=== PATIENT | male | born 2000 | race Two or more races ===

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

== ENCOUNTER 2024-08-10 06:58 | Emergency (ER) | payer MEDICAID, OTHER ==
[~2024-08-10] VITALS: Ht 167.6 cm; Wt 70.0 kg
--- NOTE | 2024-08-10 07:19 | ED.PDOC ---
History of Present Illness HPI Comments 24-year-old male BIBA no prior medical history but has a social history of alcohol use in a chief complaint of EtOH. EMS report that the patient went into the [employer] and was trying to buy alcohol while already intoxicated, the employees from [employer] declined patient to purchase more alcohol on and they found the patient passed out drunk in his vehicle. Patient had a blood sugar of 68 on scene. When the patient was in the ambulance [place], was trying and talk to the patient but the patient said Fuck off as well as go back to your [place] . Denies chills, fever, N/V/D, SOB, CP. No other associated symptoms, modifiers, recent injuries or sick contacts present at this time. Time Seen by MD: 07:10 Reviewed Notes: Nurses Notes, [employer] Boiler Notes, Medications, Allergies Allergies: Coded Allergies: Avocado (Verified Allergy, Severe, 07/22/20) Banana (Verified Allergy, Severe, 07/22/20) Information Source: Patient (Noncompliant), Emergency Med Personnel Mode of Arrival: EMS Severity: Moderate Timing: Hours Duration: Since onset, Hours Prehospital treatment: None Past Medical History PAST MEDICAL HISTORY: Denies Surgical History: Denies all surgeries Family History Family History: Reviewed,noncontributory to illness, Unknown Social History Smoker: Other (Due from the being noncompliant) Alcohol: Heavy Drugs: Unknown (Due from being noncompliant) Lives In: Unknown (Due from being noncompliant) Constitutional: reports: others (ETOH); denies: chills, diaphoresis, fatigue, fever, malaise, sweats, weakness EENTM: denies: blurred vision, double vision, ear bleeding, ear discharge, ear drainage, ear pain, ear ringing, eye pain, eye redness, hearing loss, mouth pain, mouth swelling, nasal discharge, nose bleeding, nose congestion, nose pain, photophobia, tearing, throat pain, throat swelling, voice changes, others Respiratory: denies: cough, hemoptysis, orthopnea, SOB at rest, shortness of breath, SOB with excertion, stridor, wheezing, others Cardiovascular: denies: chest pain, dizzy spells, diaphoresis, Dyspnea on exertion, edema, irregular heart beat, left arm pain, lightheadedness, palpitations, PND, syncope, others Gastrointestinal: denies: abdomen distended, abdominal pain, blood streaked bowels, constipated, diarrhea, dysphagia, difficulty swallowing, hematemesis, melena, nausea, poor appetite, poor fluid intake, rectal bleeding, rectal pain, vomiting, others Genitourinary: denies: burning, dysuria, flank pain, frequency, hematuria, incontinence, penile discharge, penile sore, pain, testicle pain, testicle swelling, urgency, others Neurological: denies: dizziness, fainting, headache, left sided numbness, left sided weakness, numbness, paresthesia, pre-existing deficit, right sided numbness, right sided weakness, seizure, speech problems, tingling, tremors, weakness, others Musculoskeletal: denies: back pain, gout, joint pain, joint swelling, muscle pain, muscle stiffness, neck pain, others Integumetry: denies: bruises, change in color, change in hair/nails, dryness, laceration, lesions, lumps, rash, wounds, others Allergic/Immunocompromised: denies: Difficulty Healing, Frequent Infections, Hives, Itching, others Hematologic/Lymphatic: denies: anemia, blood clots, easy bleeding, easy bruising, swollen glands, others Endocrine: denies: excessive hunger, excessive sweating, excessive thirst, excessive urination, flushing, intolerance to cold, intolerance to heat, unexplained weight gain, unexplained weight loss, others Psychiatric: denies: anxiety, bipolar disorder, depression, hopeless, panic dis order, schizophrenia, sleepless, suicidal, others All Other Systems: Reviewed and Negative Physical Exam General Appearance: No Apparent Distress, Normal HEENT: Normal ENT Inspection, Pharynx Normal, TMs Normal Neck: Full Range of Motion, Non-Tender, Normal, Normal Inspection Respiratory: Chest Non-Tender, Lungs Clear, No Accessory Muscle Use, No Respiratory Distress, Normal Breath Sounds, Other (Expansion of the lungs on observation no sign of any distress) Cardiovascular: No Edema, No JVD, No Murmur, No Gallop, Normal Peripheral Pulses, Regular Rate/Rhythm Breast Exam: Deferred Gastrointestinal: No Organomegaly, Non Tender, No Pulsatile Mass, Normal Bowel Sounds, Soft Genitalia: Deferred Pelvic: Deferred Rectal: Deferred Extremities: No calf tenderness, Normal capillary refill, Normal inspection, Normal range of motion, Non-tender, No pedal edema, Other (Moving all extremities without any difficulty) Musculoskeletal : Apperance: Normal Neurologic: Alert, metal melter II-XII nml as Tested, No Motor Deficits, Normal Affect, Normal Mood, No Sensory Deficits Cerebellar Function: NOT DONE Reflexes: NOT DONE Skin: Dry, Normal Color, Warm Peripheral Pulses: 3+ Radial (R), 3+ Radial (L) Lymphatic: No Adenopathy Was a procedure done? Was a procedure done?: No Differential Dx Considerations may include: Alcohol abuse X-Ray, Labs, Meds, VS Patient alert. Answering questions. No slurred speech. Moving all extremities. Vitals stable. No injuries. History of alcohol abuse. Very abusive. Unable to get a good physical examination. On observation no leg swelling. No shortness a breath. Explained to the patient that I will need to do further workup but he refused. He did sign against medical advice. Was told to come back if there is any problem. Time of 1ST Reevaluation: 07:40 Reevaluation 1ST: Improved Patient Education/Counseling: Diagnosis, Treatment, Prognosis Family Education/Counseling: No Family Present Departure 1 Departure Time of Disposition: 07:35 Impression: Primary Impression: Alcohol intoxication Qualified Codes: F10.920 - Alcohol use, unspecified with intoxication, uncomplicated Disposition: 07 LEFT AGAINST MEDICAL ADVICE Condition: Good Discharged With: Self Critical Care Note Critical Care Time?: No Stability Stability form required: No Heart Score Heart Score: Heart Score Response (Comments) Value History N/A 0 EKG N/A 0 Age N/A 0 Risk Factors N/A 0 Troponin N/A 0 Total 0 I personally scribed for SABINE LANCASTER MD ([email or web address]) on 08/10/24 at 07:19. Electronically submitted by Orlando Cedeño ([email or web address]). SABINE LANCASTER MD August 10, 2024 07:19
[2024-08-10 07:30] VITALS: BP 102/69; PULSE 69; RESP 16; O2SAT 98
== END 2024-08-10 08:20 | disposition left against medical advice (07) ==
LOC: ER 06:58 → EDBD 06:58 → ER 08:20
DX: F10.129 Alcohol abuse with intoxication, unspecified (principal); F17.200 Nicotine dependence, unspecified, uncomplicated; Y90.9 Presence of alcohol in blood, level not specified